=== PATIENT | female | born 1980 | race Caucasian/White ===

== ENCOUNTER 2023-02-28 22:25 | Emergency (ER) | payer OTHER ==
[~2023-02-28] VITALS: Ht 167.6 cm; Wt 84.1 kg
[2023-02-28 23:22] VITALS: BP 154/90; PULSE 78; TEMP 98.2
[2023-02-28 23:56] LABS: MONOSCREEN NEGATIVE
== END 2023-02-28 23:22 | disposition home or self-care (01) ==
LOC: COL.ER 22:25
PROVIDERS: Emergency Medicine
DX: B34.9 Viral infection, unspecified (principal); R50.9 Fever, unspecified